=== PATIENT | female | born 1980 | race Caucasian/White ===

== ENCOUNTER 2017-07-24 19:56 | Emergency (ER) | payer OTHER ==
[~2017-07-24] VITALS: Ht 162.6 cm; Wt 64.5 kg
[2017-07-24] MEDS ORDERED: INDOCIN25 MG PO (22:30)
[2017-07-24] MEDS ORDERED: NORCO 10/3251 TABLET PO (22:30)
[2017-07-24 23:32] VITALS: BP 148/82
== END 2017-07-24 23:33 | disposition home or self-care (01) ==
LOC: EME 19:56
DX: S30.0XXA Contusion of lower back and pelvis, initial encounter (principal); W10.9XXA Fall (on) (from) unspecified stairs and steps, initial encounter; Z87.442 Personal history of urinary calculi; F17.200 Nicotine dependence, unspecified, uncomplicated
CPT/HCPCS: 72100; 72220; 99281; 99284; J3010